=== PATIENT | male | born 1990 | race Caucasian/White ===

== ENCOUNTER 2017-01-13 18:19 | Emergency (ER) | payer BC, OTHER ==
[~2017-01-13] VITALS: Ht 182.9 cm; Wt 124.2 kg
[2017-01-13 18:20] VITALS: TEMP 36.6; Ht 182.9 cm; Wt 124.2 kg
[2017-01-13] MEDS ORDERED: CLON0.5T3 PO (18:32)
[2017-01-13] MEDS ORDERED: CYCL10TA6 PO (18:32)
[2017-01-13] MEDS ORDERED: AMPH10TA2 PO (18:32)
[2017-01-13] MEDS ORDERED: AMPH30CA3 PO (18:32)
--- NOTE | 2017-01-13 18:58 | EMERGENCY ROOM VISIT NOTE ---
History First contact with patient: 18:32 Chief Complaint: BACK PAIN Stated Complaint: BACK PAIN SINCE LAST History of Present Illness The patient is a 26 year old male who presents to the Emergency Room with complaints of back pain. The patient states that his pain started on Sunday. He does not recall any specific injury. He states that yesterday he was seen at [facility]. He was given muscle relaxer and ibuprofen. He states that today he was coughing and felt a pop in his back. He states that he doubled over in pain and the pain has been significantly worse since then. He rates his discomfort an 8/10. He states he is unable to get comfortable because of the pain. He denies any pain in his chest or trouble breathing. He denies any abdominal pain or vomiting. He denies any numbness, tingling, weakness, pain in the lower extremities. He denies any loss of bowel or bladder control or saddle anesthesia. Review of Systems A 10 system review of systems was completed with positives and pertinent negatives listed in the HPI. Past Medical/Surgical History patient denies Social History Smoking Status: Former Smoker Marital Status: single Occupation Status: [employer] student Current/Historical Medications Scheduled Amphetamine-Dextroamphetamine 10MG (Adderall 10MG), 10 MG PO DAILY Amphetamine-Dextroamphetamine 30MG (Adderall Xr 30MG), 30 MG PO DAILY Clonazepam (Klonopin), 0.5 MG PO BID Cyclobenzaprine Hcl (Flexeril), 10 MG PO Q8 Prednisone (Prednisone), 0 PO DAILY Scheduled PRN Oxycodone Ir (Roxicodone Ir), 1-2 TAB PO Q4H PRN for Pain Physical Exam Vital Signs Date Time Temp Pulse Resp B/P (MAP) Pulse Ox O2 Delivery O2 Flow Rate FiO2 01/13/17 20:16 98 128/80 95 01/13/17 18:20 36.6 127 17 136/83 94 Room Air Physical Exam VITALS: Vitals are noted on the nurse's note and reviewed by myself. Vital signs stable. GENERAL: This is a 26-year-old male who appears to be uncomfortable from the pain, in no acute distress, nondiaphoretic, well-developed well-nourished. SKIN: The skin was without rashes, erythema, edema, or bruising. There is no tenting of the skin. Capillary reflex less than 2 seconds. HEAD: Normocephalic atraumatic. EARS: The external ears are normal in appearance. EYES: Pupils equal round and reactive to light and accommodation. Conjunctivae without injection, sclerae without icterus. Extraocular movements intact. NOSE: Patent, turbinates without inflammation or discharge. MOUTH: Mucous membranes moist. Tonsils are not enlarged. Pharynx without erythema or exudate. Uvula midline. Airway patent. Tongue does not deviate. NECK: Supple without nuchal rigidity. No JVD. HEART: Regular rate and rhythm without murmurs gallops or rubs. LUNGS: Clear to auscultation bilaterally without wheezes, rales or rhonchi. No retractions or accessory muscle use. ABDOMEN: Positive bowel sounds x 4. Soft, nontender, without masses or organomegaly. MUSCULOSKELETAL: No muscle atrophy, erythema, or edema noted. The patient has moderate tenderness to palpation to the lower thoracic and upper lumbar spine. There is tenderness palpation to the paraspinous muscles. The patient is very slow to move around. Full range of motion without joint tenderness in all extremities. Patient has an antalgic gait. Strength 5/5 throughout. NEURO: Patient was alert and oriented to person place and time. Normal sensation to light and sharp touch. Deep tendon reflexes 2+ throughout. No focal neurological deficits. Medical Decision & Procedures ER Provider Diagnostic Interpretation: [~ rep ct add3]] THORACIC SPINE WITHOUT, LUMBAR SPINE WITHOUT HISTORY: 26 years-old Male back pain acute thoracolumbar pain without reported trauma. Initial exam. COMPARISON: CT cervical spine 09/10/2015 TECHNIQUE: Multiple axial CT images of the thoracic and lumbar spine were obtained without IV contrast. A dose lowering technique was used consistent with the principals of ALARA. FINDINGS: THORACIC SPINE: No acute fracture or subluxation. No acute rib fracture identified. There is minimal endplate spurring seen at the T2-T3, T3-T4 and T4-T5 levels. Small left paracentral disc osteophyte complex is noted at T3-T4 causing mild left lateral recess stenosis. No high-grade central canal or foraminal narrowing identified. Evaluation of the soft tissues demonstrates no gross abnormality. No pneumothorax. There is minimal dependent bibasilar atelectasis. LUMBAR SPINE: 5 lumbar type nonrib-bearing vertebral segments are present. Minimal degenerative changes involve the sacroiliac joints. Alignment is satisfactory. No acute fracture or subluxation. No pars defect or significant degenerative changes. There is minimal facet arthropathy at L5-S1. T12-L1; L1-L2; L2-L3; L3-L4: No central canal or foraminal narrowing. L4-L5: Broad-based posterior disc bulge mildly flattens the ventral thecal sac without significant central canal or foraminal narrowing. L5-S1: Central broad-based disc protrusion without central canal or foraminal narrowing. Imaged intra-abdominal and intrapelvic structures demonstrate no focal abnormality. Paraspinal musculature is within normal limits. IMPRESSION: 1. No acute fracture or subluxation of the thoracic or lumbar spine. 2. Only minimal degenerative changes are seen as above without high-grade central canal or foraminal narrowing. The above report was generated using voice recognition software. It may contain grammatical, syntax or spelling errors. Medications Administered Medications (Trade) Dose Ordered Sig/Jaspal Route Start Time Stop Time Status Last Admin Dose Admin Prednisone (PredniSONE TAB) 60 mg NOW STAT PO 01/13/17 19:36 01/13/17 19:38 DC 01/13/17 20:00 60 MG ED Course The patient was seen and examined. Previous visits were reviewed. The patient does not have a fever. The patient has pain in the lumbar spine that radiates up through the thoracic spine. The patient does not have any neurologic deficit on exam or by history. The patient has already been seen by outpatient medicine and given Flexeril and ibuprofen and his symptoms have actually worsened. Therefore, I did obtain CT imaging of the lumbar and thoracic spines. The patient has bulging disc at L4-L5 and protruding disc at L5-S1. The patient will be given a prescription for oxycodone and prednisone He should return to the emergency department immediately with any loss of bowel or bladder control, saddle anesthesia, numbness, tingling, weakness in the legs. Otherwise, he should follow-up with orthopedic spine surgery in/or [facility]. Medical Decision DIFFERENTIAL DIAGNOSIS: Lumbar strain, degenerative disc disease, spondylolisthesis, herniated disc, spinal stenosis, osteoporosis, fracture, cauda equina syndrome, neoplasm, infection, inflammatory arthritis, among others. [place] Drug Monitoring Program Search Results: patient reviewed within database, no issues identified Medication Reconcilliation Current Medication List: was personally reviewed by me Blood Pressure Screening Patient's blood pressure: Elevated blood pressure Blood pressure disposition: Elevated BP felt to be situational Impression Primary Impression: Back pain Departure Information Dispostion Home / Self-Care Condition GOOD Prescriptions Prednisone (Prednisone) 20 Mg Tab 0 PO DAILY, #18 TAB 3 DAILY FOR 3 DAYS, THEN 2 DAILY FOR 3 DAYS, THEN 1 DAILY FOR 3 DAYS. Prov: Maureen Tripp PA-C 01/13/17 Oxycodone Ir (Roxicodone Ir) 5 Mg Tab 1-2 TAB PO Q4H Y for Pain, #36 TAB For Initial Treatment Prov: Maureen Tripp PA-C 01/13/17 Referrals [facility] (PCP) Forms HOME CARE DOCUMENTATION FORM, IMPORTANT VISIT INFORMATION, Work Instructions Return To Work: 3 days Patient Instructions Back Pain Relieve, My [employer] Additional Instructions Prednisone as prescribed, until finished Oxy IR 1-2 tablets every 4-6 hrs as needed for worse pain. No driving or alcohol use with Oxy IR. Follow-up with [facility] and/or orthopedic spine surgery for further evaluation and management Return with any loss of bowel or bladder control, numbness in the groin, numbness, tingling, weakness in the legs Problem Qualifiers Primary Impression: Back pain Back pain location: thoracic back pain Chronicity: acute Back pain laterality: unspecified Qualified Codes: M54.6 - Pain in thoracic spine
--- NOTE | 2017-01-13 19:28 | DIAGNOSTIC IMAGING REPORT ---
THORACIC SPINE WITHOUT, LUMBAR SPINE WITHOUT HISTORY: 26 years-old Male back pain acute thoracolumbar pain without reported trauma. Initial exam. COMPARISON: CT cervical spine 09/10/2015 TECHNIQUE: Multiple axial CT images of the thoracic and lumbar spine were obtained without IV contrast. A dose lowering technique was used consistent with the principals of RAF. FINDINGS: THORACIC SPINE: No acute fracture or subluxation. No acute rib fracture identified. There is minimal endplate spurring seen at the T2-T3, T3-T4 and T4-T5 levels. Small left paracentral disc osteophyte complex is noted at T3-T4 causing mild left lateral recess stenosis. No high-grade central canal or foraminal narrowing identified. Evaluation of the soft tissues demonstrates no gross abnormality. No pneumothorax. There is minimal dependent bibasilar atelectasis. LUMBAR SPINE: 5 lumbar type nonrib-bearing vertebral segments are present. Minimal degenerative changes involve the sacroiliac joints. Alignment is satisfactory. No acute fracture or subluxation. No pars defect or significant degenerative changes. There is minimal facet arthropathy at L5-S1. T12-L1; L1-L2; L2-L3; L3-L4: No central canal or foraminal narrowing. L4-L5: Broad-based posterior disc bulge mildly flattens the ventral thecal sac without significant central canal or foraminal narrowing. L5-S1: Central broad-based disc protrusion without central canal or foraminal narrowing. Imaged intra-abdominal and intrapelvic structures demonstrate no focal abnormality. Paraspinal musculature is within normal limits. IMPRESSION: 1. No acute fracture or subluxation of the thoracic or lumbar spine. 2. Only minimal degenerative changes are seen as above without high-grade central canal or foraminal narrowing. The above report was generated using voice recognition software. It may contain grammatical, syntax or spelling errors. Electronically signed by: Domingo Augustin M.D. 01/13/2017 7:27 PM Dictated Date/Time: 01/13/2017 7:16 PM
[2017-01-13] MEDS ORDERED: PRED20TA PO (19:38)
[2017-01-13] MEDS ORDERED: OXYC1TAB3 PO (19:38)
[2017-01-13] MEDS ORDERED: OXYCODONE IR HOME PACK PO ONE (19:45)
[2017-01-13 20:16] VITALS: BP 128/80; PULSE 98; O2SAT 95
== END 2017-01-13 20:18 | disposition home or self-care (01) ==
LOC: C.EDB 18:20 → C.EDD 20:18
DX: M54.6 Pain in thoracic spine (principal); Z87.891 Personal history of nicotine dependence